=== PATIENT | male | born 1945 | race Caucasian/White ===

== ENCOUNTER → 2017-05-04 | Outpatient (CLI) | payer MEDICARE, OTHER ==
[2014-09-22 13:54] VITALS: BMI 26.5
[~2017-05-04] MED LIST: ALPR-429 PO; ALPR-448 PO; AMOX-559 PO; ASPI-1471 PO; ASPI-757 PO; ASPI81TA94 PO; ATOR20TA65 PO; CLOP75TA43 PO; DOXY-179 PO; FEN145 PO; GLY5 PO; HYDR12.556 PO; INSU100C14 SQ; INSU100I35 SQ; INSU100I5 SQ; INSU100I5 SUBQ; LANI SUBQ; LOSA100T63 PO; LOSA100T67 PO; METF-410 PO; METF500T4 PO; METO-259 PO; METO25TA23 PO; METO50TA19 PO; METXR500 PO; NITR0.4T3 SL; NOVOLOG SUBQ; OMEG-11 PO; REGADENOSON 0.4 MG/5 ML SYR ONE; TAMS0.4C25 PO
--- NOTE | 2017-05-04 16:09 | RADIOLOGY IMAGING REPORT ---
FACILITY: [facility] PATIENT NAME: Atif Rodriguez : 1945 MR: [id number] V: [id number] EXAM DATE: ORDERING PHYSICIAN: JENNIFER YODER TECHNOLOGIST: Location: [facility] Patient: Atif Rodriguez : 1945 Visit/Account:[id number] Date of Sevice: 05/04/2017 Carotid artery Doppler duplex ultrasound scan. HISTORY: Dizziness. COMPARISON: 01/07/2016. A color flow Doppler duplex ultrasound scan with spectral analysis was performed on the carotid and v ertebral arteries bilaterally. Measurement of carotid stenosis is based on velocity parameters that correlate the residual internal carotid diameter with [place] Symptomatic Carotid Endarterecto my Trial (NASCET)- based stenosis levels. Right carotid peak systolic velocities are as follows: Superior right ICA - 78 cm/sec. Mid right ICA - 102 cm/sec. Proximal right ICA - 143 cm/sec. Right carotid bulb - 149 cm/sec. Superior right CCA - 106 cm/sec. Mid right CCA- 113 cm/sec. Inferior right CCA- 182 cm/sec. Proximal right ECA- 182 cm/sec. Mid right vertebral- 76 cm/sec. Right ICA/CCA ratio- 1.3 ( normal < 1.5 ). Antegrade right vertebral artery flow- YES. Left carotid peak systolic velocities are as follows: Superior left ICA - 84 cm/sec. Mid left ICA- 128 cm/sec. Proximal left ICA- 211 cm/sec. Left carotid bulb- 65 cm/sec. Superior left CCA- 86 cm/sec. Mid left CCA- 106 cm/sec. Inferior left CCA- 164 cm/sec. Proximal left ECA- 121 cm/sec. Mid left vertebral- 39 cm/sec. Left ICA/CCA ratio- 2.0 ( normal < 1.5). Antegrade left vertebral artery flow- YES. The internal carotid arteries are tortuous bilaterally. Partially calcified plaques are present in t he carotid bulbs and proximal internal and external carotid arteries bilaterally. Some of the caroti d velocities have increased compared to previous bilaterally. 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 50-70% stenosis of the proximal left internal carotid artery. 30-50% stenosis of the left carotid bulb. Report Dictated By: Papo Santiago MD at 05/04/2017 4:00 PM Report E-Signed By: Papo Santiago MD at 05/04/2017 4:04 PM WSN:[email or web address]
--- NOTE | 2017-05-04 17:35 | RADIOLOGY IMAGING REPORT ---
FACILITY: [facility] [place] PATIENT NAME: Atif Rodriguez : 1945 MR: [id number] V: [id number] EXAM DATE: ORDERING PHYSICIAN: JENNIFER YODER TECHNOLOGIST: Location: [facility] Patient: Atif Rodriguez : 1945 Visit/Account:[id number] Date of Sevice: 05/04/2017 EXAMINATION: Single isotope SPECT imaging with regadenoson infusion and gated SPECT imaging. DATE OF EXAMINATION: May 04, 2017. DATE OF INTERPRETATION: May 04, 2017. REQUESTING PHYSICIAN: JENNIFER YODER. INDICATION: The patient is a 72-year-old male evaluated for coronary artery disease. PROCEDURE: After informed consent the patient received an intravenous injection of 12.3 mCi of Tc-99 m sestamibi followed at an appropriate time interval by rest imaging. The patient then subsequently received an intravenous infusion of 0.4 mg of regadenoson per protocol without complication. Resting heart rate was 50 bpm with a peak heart rate of 70 bpm. Blood pressure at rest was 137 / 55 and fol lowing infusion was 138 / 61. Baseline EKG demonstrates normal sinus rhythm with inferior T wave inv ersions.. There were no diagnostic EKG changes of ischemia following infusion. Symptoms were nonspe cific. The patient then received an intravenous injection of 31.0 mCi of Tc-99m sestamibi followed b y stress imaging. RAW DATA: Examination of the summed raw data revealed a good quality study. MYOCARDIAL PERFUSION: The tomographic images demonstrate an inferior defect at rest that does not ch anastasia with stress but improves with prone imaging. This is likely diaphragmatic attenuation. No sign ificant infarction or ischemia is suspected. GATED IMAGES: The gated images demonstrate an ejection fraction of 62% with normal wall motion. IMPRESSION: 1. Baseline EKG shows normal sinus rhythm with inferior T wave abnormalities. There are no signific ant changes during stress. 2. Probably normal myocardial perfusion scan. 3. Normal LV systolic function; LVEF 62%. 4. Based on the results of this exam, the patient appears to be at low risk for future cardiovascular events. Report Dictated By: Azael Lawrence MD at 05/04/2017 5:28 PM Report E-Signed By: Azael Lawrence MD at 05/04/2017 5:31 PM WSN:[id number]
== END ==
LOC: NUC 02:00
PROVIDERS: ATTEND Internal Medicine
DX: I65.23 Occlusion and stenosis of bilateral carotid arteries (principal); R42 Dizziness and giddiness; I65.22 Occlusion and stenosis of left carotid artery
CPT/HCPCS: 78452; 93017; 93880; A9500; J2785

== ENCOUNTER → 2017-06-15 | Outpatient (CLI) | payer MEDICARE, OTHER ==
[2014-09-22 13:54] VITALS: BMI 26.5
[~2017-06-15] MED LIST changes: +PNEU0.5D3 IM; -REGADENOSON 0.4 MG/5 ML SYR ONE
== END ==
LOC: LAB 10:27
PROVIDERS: ATTEND Emergency Medicine
DX: E11.9 Type 2 diabetes mellitus without complications (principal); Z72.89 Other problems related to lifestyle; I10 Essential (primary) hypertension
CPT/HCPCS: 36415; 83036; G0472; 82310; 82374; 82435; 82565; 82947; 84132; 84295; 84520; 86803

== ENCOUNTER 2018-01-06 10:00 | Outpatient (RCR) | payer MEDICARE, OTHER ==
[2014-09-22 13:54] VITALS: BMI 26.5
[2017-12-09 16:05] VITALS: BP_SYST 118; BP_SYST 136; BP_DIAS 68; BP_DIAS 78
--- NOTE | 2017-12-09 16:44 | CARDIAC REHAB PLAN OF CARE ---
Physician: Fredi Kwan III, MD Patient is being seen: Ngoc Solitario Medical Diagnosis: CABG x 3; PTCA x 5 Date of Onset: 11/20/17 Date of Initial Evaluation: 12/09/17 INTERVENTIONS: Due Date: 01/09/18 Patient Assessment: Patient comes to cardiac rehab following a fifth stent placement on 11/20/17. This totals his cardiac procedures to Stent x 5 and CABG x 3. He also has a history of HTN, high cholesterol, and Type 2 Diabetes. He has a history of being uncooperative with his diabetic treatment. His initial ECG shows an undiagnosed irregular bradycardic rhythm that will need further investigation. He has little interest in starting the program, but admits to giving it his best shot as he knows it is a good opportunity for him. Exercise Assessment: During the 6-Minute Walk Test (6MW) the patient walked a total of 1375ft equal to 2.6mph on average. He maintained a HR between 65-90bpm and SPO2 >90%. While testing different exercise equipment he was able to achieve MET levels between 3-4.5 with no complications. He appears to be in decent physical condition, capable of extended periods of exercise and strength building exercises. He enjoys working hard and appears somewhat motivated for exercise. Exercise Plan: Goals: Exercise goals include educating the patient on proper technique and symptom monitoring during exercise (e.g. fatigue, angina, dyspnea, etc). We will aim towards 150min/week of continuous moderate exercise with an end goal of 6 METs on average. We will also emphasize the importance of balance and flexibility training for continuing functional fitness and independence. Exercise Prescription: Mode: Recumbent Bike and Treadmill Frequency: 2-3 days/week (MW and sometimes F) Duration: We will begin with at least 30 minutes of aerobic exercise, with an end goal of 50 minutes/session Intensity: THR range is 80-90bpm, currently exercising between 3.5-4.5 METs Education: Education will focus on the importance of structured exercise and exercise variation for the heart and skeletal muscles for the goal of maintaining independence and overall quality of life. Exercise Reassessment (Date: ): Exercise Discharge/Follow-Up (Date: ): Nutrition Assessment: The patient does not appear to have full understanding of the important role diet places in both diabetes and heart disease. He currently does not eat a healthy diet--sometimes going for long periods of time without eating. He reports he does not like to take the time to eat or prepare food. This is the area of his health that could use the most intervention. Nutrition Plan: Goals: Our primary goal will be to help instill an understanding and motivation within the patient to want to eat more healthy. Intervention: We will need to educate the patient first on why a healthy diet is important and how it can aid in his goal to be functionally independent and do the things that he loves to do. We will also aim to get his involved more in this plan to help create a level of social support. Education: We will education this through scientific articles and references as well as sharing recipes and food options with him to help him fit such a diet into his daily schedule. Nutrition Reassessment (Date: ): Nutrition Discharge/Follow-Up (Date: ): Psychosocial Assessment: According to the HADS assessment, the patient has low levels of both depression (5/21) and anxiety (5/21). 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 He admits to not handling the stress well and it leads him to great levels of frustration and anxiety. This could be contributing to extent of his heart disease. He also is rather uncooperative and slightly combative when it comes to discussing his health and behavior change. Psychosocial Plan: Goals: Our primary goal will be to help the patient become more aware of the significance stress can have on heart disease development and the follow that with how to recognize and manage stressful situations. Intervention: It would be ideal to involve the patients in the program information so she can provide social support and help his identifying unhealthy behaviors at home. We will also help him through educating him on stress relieving techniques and practices. Education: Education will be aimed towards recognizing symptoms of being over anxious and stressed as well as how to manage stress when it is apparent. Psychosocial Reassessment (Date: ): Psychosocial Discharge/Follow-Up (Date: ): Diabetes Management Assessment: Patient is currently diagnosed with Type Two Diabetes and is relatively unmanaged. He has a history of being uncooperative with managing his metabolic disorder. Testing in July 2017 showed his HbA1C at 9.8. He states that he does not believe he can control his glucose levels and does not bother to check them during the day. Diabetes Management Plan: Goals: Our primary goal will be to help the patient understand the severity of diabetes, particular when it goes unmanaged. We need to help instill a sense of importance and help him to care about his diabetes state first. Then we can continue with the benefit of regular exercise and proper nutrition to help maintain is blood glucose levels. Intervention: We will provide education aimed towards the risks of diabetes and the benefits that a diabetic can receive with proper diet, exercise, and medication. Education: We need to educate the patient so he understands the importance of managing his metabolic disease. Once the motivation is instilled, we can then move our education towards simple dietary and lifestyle changes that can help manage his condition. Diabetes Management Reassessment (Date: ): Diabetes Management Discharge/Follow-Up (Date: ): Physician Signature: Date: MTDD
[2017-12-11 13:13] VITALS: BP 134/82
[2017-12-11 13:14] VITALS: BP 124/72
[2017-12-16 16:19] VITALS: BP_SYST 128; BP_SYST 148; BP_DIAS 74; BP_DIAS 80
[2017-12-21 13:12] VITALS: BP 134/78
[2017-12-21 13:13] VITALS: BP 124/70
[2017-12-28 13:15] VITALS: BP 138/70
[2017-12-28 13:16] VITALS: BP 118/74
[~2018-01-06 10:00] MED LIST changes: +INSU100I10 SC; +INSU100I5 SC; -LOSA100T67 PO; +LOSA100T69 PO; -METF-410 PO; +METF-450 PO; +ROSU5TAB8 PO
[2018-01-06 15:45] VITALS: BP 142/80
[2018-01-06 15:46] VITALS: BP 130/74
--- NOTE | 2018-01-26 11:56 | CARDIAC REHAB PLAN OF CARE ---
Physician: Fredi Kwan III, MD Patient is being seen: Altaf Ngoc Medical Diagnosis: CAGB x 3; PTCA x 5 Date of Onset: 11/20/17 Date of Initial Evaluation: 12/09/17 Date patient was last seen: 01/06/18 Number of treatments: 6 Number of cancellations/No Shows: 14 INTERVENTIONS: Due Date: 02/26/18 Short Term Goals: Patient Assessment: Patient comes to cardiac rehab following a fifth stent placement on 11/20/17. This totals his cardiac procedures to Stent x 5 and CABG x 3. He also has a history of HTN, high cholesterol, and Type 2 Diabetes. He has a history of being uncooperative with his diabetic treatment. His initial ECG shows an undiagnosed irregular bradycardic rhythm that will need further investigation. He has little interest in starting the program, but admits to giving it his best shot as he knows it is a good opportunity for him. Exercise Assessment: During the 6-Minute Walk Test (6MW) the patient walked a total of 1375ft averaging to 2.6mph on average. He maintained a HR between 65-90bpm and SPO2 >90%. While testing different exercise equipment he was able to achieve MET levels between 3-4.5 with no complications. He appears to be in decent physical condition, capable of extended periods of exercise and strength building exercises. He enjoys working hard and appears somewhat motivated for exercise. Exercise Plan: Goals: Exercise goals include educating the patient on proper technique and symptom monitoring during exercise (e.g. fatigue, angina, dyspnea, etc). We will aim towards 150min/week of continuous moderate exercise with an end goal of 6 METs on average. We will also emphasize the importance of balance and flexibility training for continuing functional fitness and independence. Exercise Prescription: Mode: Recumbent Bike and Treadmill Frequency: 2-3 days/week (MW and sometimes F) Duration: We will begin with at least 30 minutes of aerobic exercise, with an end goal of 50 minutes/session Intensity: THR range is 80-90bpm, currently exercising between 3.5-4.5 METs Education: Education will focus on the importance of structured exercise and exercise variation for the heart and skeletal muscles for the goal of maintaining independence and overall quality of life. Exercise Reassessment (Date: 01/26/18): The patient has been very inconsistent with his attendance at cardiac rehab. As of today he has not attended an exercise session in nearly 3 weeks. We have contacted him regarding this and he states that he is very busy but is not giving up on the program as he knows that it is good for him. Prior to his absence from exercise he was exercising on average at 40 minutes/session with 3.4 METs on average for intensity. However, he was not reaching his THR and was instead averaging a HR between 60- 70bpm. When he does decide to come back to exercise we will start again from square one1. trying to encourage regular attendance, 2. Achieving 40+ minutes/session of continuous exercise, and then 3. Increasing exercise intensity. Exercise Discharge/Follow-Up (Date: ): Nutrition Assessment: The patient does not appear to have full understanding of the important role diet places in both diabetes and heart disease. He currently does not eat a healthy diet--sometimes going for long periods of time without eating. He reports he does not like to take the time to eat or prepare food. This is the area of his health that could use the most intervention. Nutrition Plan: Goals: Our primary goal will be to help instill an understanding and motivation within the patient to want to eat more healthy. Intervention: We will need to educate the patient first on why a healthy diet is important and how it can aid in his goal to be functionally independent and do the things that he loves to do. We will also aim to get his involved more in this plan to help create a level of social support. Education: We will education this through scientific articles and references as well as sharing recipes and food options with him to help him fit such a diet into his daily schedule. Nutrition Reassessment (Date: 01/26/18): Upon talking to the patient about his diet he was very contentious on the subject. We are attempting to stress the importance, particularly for him who is relatively active and not sedentary but eats horribly for his heart angelina, of how important proper nutrition is. We are not positive that he completely grasps the importance of diet as he states its not going to make much of a difference now in his life. He is relatively blunt and honest when it comes to diet, officially stating on his most recent visit here that it is very unlikely that he will change any aspect of his diet due to him being a creature of habit and not seeing the benefit in it. We will continue to educate him and trying to motivate him as best as we can, but our first ej will be finding his source of motivation. Nutrition Discharge/Follow-Up (Date: ): Psychosocial Assessment: According to the HADS assessment, the patient has low levels of both depression (5/21) and anxiety (5/21). 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 He admits to not handling the stress well and it leads him to great levels of frustration and anxiety. This could be contributing to extent of his heart disease. He also is rather uncooperative and slightly combative when it comes to discussing his health and behavior change. Psychosocial Plan: Goals: Our primary goal will be to help the patient become more aware of the significance stress can have on heart disease development and the follow that with how to recognize and manage stressful situations. Intervention: It would be ideal to involve the patients in the program information so she can provide social support and help his identifying unhealthy behaviors at home. We will also help him through educating him on stress relieving techniques and practices. Education: Education will be aimed towards recognizing symptoms of being over anxious and stressed as well as how to manage stress when it is apparent. Psychosocial Reassessment (Date: 01/26/18): As a team we have perceived that his stress level has either stayed relatively stable if not increased since his time at cardiac rehab. He continuously reports being too busy to come here and appears very anxious during the times he does attend. This is followed by some antagonistic behavior during his time here as he is argumentative and resistant to hearing the information we have to offer. The best we can do right now is to make him feel welcome when he does attend and be optimistic and positive during his time here. Once we have him regularly attending again we can try to address the stress relieving practices formerly mentioned above. Psychosocial Discharge/Follow-Up (Date: ): Diabetes Management Assessment: Patient is currently diagnosed with Type Two Diabetes and is relatively unmanaged. He has a history of being uncooperative with managing his metabolic disorder. Testing in July 2017 showed his HbA1C at 9.8. He states that he does not believe he can control his glucose levels and does not bother to check them during the day. Diabetes Management Plan: Goals: Our primary goal will be to help the patient understand the severity of diabetes, particulary when it goes unmanaged. We need to help instill a sense of importance and help him to care about his diabetes state first. Then we can continue with the benefit of regular exercise and proper nutrition to help maintain is blood glucose levels. Intervention: We will provide education aimed towards the risks of diabetes and the benefits that a diabetic can receive with proper diet, exercise, and medication. Education: We need to educate the patient so he understands the importance of managing his metabolic disease. Once the motivation is instilled, we can then move our education towards simple dietary and lifestyle changes that can help manage his condition. Diabetes Management Reassessment (Date: 01/26/18): No progress has been made on the information above. First we must address the psychosocial and dietary changes discussed previously before we can further develop his diabetes management plan. Diabetes Management Discharge/Follow-Up (Date: ): Physician Signature: Date: MTDD
[2018-01-28] MEDS ORDERED: ROSU5TAB8 PO (14:00)
== END 2018-01-06 18:00 | disposition home or self-care (01) ==
LOC: CARD 10:00
PROVIDERS: ATTEND Internal Medicine Interventional Cardiology
DX: Z95.1 Presence of aortocoronary bypass graft (principal); Z95.5 Presence of coronary angioplasty implant and graft; I10 Essential (primary) hypertension; E11.9 Type 2 diabetes mellitus without complications; E78.5 Hyperlipidemia, unspecified
CPT/HCPCS: 93798

== ENCOUNTER → 2018-04-01 | Outpatient (CLI) | payer MEDICARE, OTHER ==
[2014-09-22 13:54] VITALS: BMI 26.5
[~2018-04-01] MED LIST changes: +DULA0.75 SUBQ; +ESC10 PO; +FLAS1EAC ASDIRECTED; +FLAS1KIT SUBQ; -LOSA100T69 PO; +LOSA100T75 PO
== END ==
LOC: LAB 08:45
PROVIDERS: ATTEND Emergency Medicine
DX: I10 Essential (primary) hypertension (principal)
CPT/HCPCS: 36415; 82607

== ENCOUNTER → 2018-05-05 | Outpatient (CLI) | payer MEDICARE, OTHER ==
[2014-09-22 13:54] VITALS: BMI 26.5
[~2018-05-05] MED LIST changes: +ESCI20TA8 PO; +EVOL140P SUBQ
[2018-05-05 10:25] LABS: PLATELET COUNT, AUTOMATED 219 K/uL (150-450)
== END ==
LOC: LAB 10:01
PROVIDERS: ATTEND Emergency Medicine
DX: F32.9 Major depressive disorder, single episode, unspecified (principal); E11.9 Type 2 diabetes mellitus without complications; I10 Essential (primary) hypertension
CPT/HCPCS: 36415; 82040; 82247; 82310; 82374; 82435; 82565; 82947; 83036; 84075; 84132; 84155; 84295; 84443; 84450; 84460; 84520; 85025

== ENCOUNTER → 2018-06-03 | Outpatient (CLI) | payer MEDICARE, OTHER ==
[2014-09-22 13:54] VITALS: BMI 26.5
[~2018-06-03] MED LIST changes: +HUM100VI2 SUBQ; +INSU100I42 SUBQ; +SIL50 PO; +SYRI-1525 MC
[2018-06-03 08:15] LABS: PLATELET COUNT, AUTOMATED 203 K/uL (150-450)
[2018-06-03 09:36] LABS: LDL CHOLESTEROL -2 mg/dl
== END ==
LOC: LAB 07:53
PROVIDERS: ATTEND Emergency Medicine
DX: I25.10 Atherosclerotic heart disease of native coronary artery without angina pectoris (principal); Z85.46 Personal history of malignant neoplasm of prostate; N52.9 Male erectile dysfunction, unspecified
CPT/HCPCS: 36415; 82040; 82247; 82310; 82374; 82435; 82465; 82565; 82947; 83036; 83718; 84075; 84132; 84153; 84155; 84295; 84402; 84403; 84450; 84460; 84478; 84520; 85025

== ENCOUNTER → 2018-08-27 | Outpatient (CLI) | payer MEDICARE, OTHER ==
[2014-09-22 13:54] VITALS: BMI 26.5
[2018-08-27 10:51] LABS: PLATELET COUNT, AUTOMATED 214 K/uL (150-450)
--- NOTE | 2018-08-27 14:13 | EKG ---
FACILITY: [facility] PATIENT NAME: MEÑO HO : [id number] MR: [id number] V: [id number] EXAM DATE: ORDERING PHYSICIAN: AMEYA KHOURY TECHNOLOGIST: JEFF Test Reason : sob Blood Pressure : / mmHG Vent. Rate : 046 BPM Atrial Rate : 046 BPM P-R Int : 180 ms QRS Dur : 126 ms QT Int : 476 ms P-R-T Axes : 055 -43 -33 degrees QTc Int : 416 ms Sinus bradycardia with premature atrial complexes Left axis deviation Nonspecific intraventricular block T wave abnormality, consider anterior ischemia Abnormal ECG When compared with ECG of 15-DEC-2015 18:42, premature atrial complexes are now present Inverted T waves have replaced nonspecific T wave abnormality in Anterior leads Confirmed by AMEYA KHOURY ([id number]) on 08/30/2018 1:49:22 PM Referred By: DINESH Confirmed By:AMEYA KHOURY
== END ==
LOC: LAB 10:33
PROVIDERS: ATTEND Emergency Medicine
DX: R00.1 Bradycardia, unspecified (principal); I45.4 Nonspecific intraventricular block; R94.31 Abnormal electrocardiogram [ECG] [EKG]; E11.9 Type 2 diabetes mellitus without complications; I25.10 Atherosclerotic heart disease of native coronary artery without angina pectoris; R42 Dizziness and giddiness; I10 Essential (primary) hypertension
CPT/HCPCS: 36415; 82040; 82247; 82310; 82374; 82435; 82565; 82947; 83036; 83880; 84075; 84132; 84155; 84295; 84450; 84460; 84484; 84520; 85007; 85027; 85379; 86140